=== PATIENT | female | born 1970 | race Caucasian/White ===

== ENCOUNTER 2017-12-13 16:19 | Emergency (ER) | payer BC ==
[2017-12-13] MEDS ORDERED: ACETAMINOPHEN 325 MG TABLET (FP) PO ONE (16:29)
--- NOTE | 2017-12-13 16:29 | PDOC ---
Rapid Medical Evaluation Time Seen by Provider: 12/13/17 16:26 Medical Evaluation: I have performed a brief in-person evaluation of this patient. The patient presents with a chief complaint of: flu like symptoms since yesterday. Went to [facility] yesterday. They did blood work and everything was normal. She states they did not swab her nose. She lives in a long-term and cannot bring any medicine into the long-term so she hasn't taken any tylenol or motrin?? Pt had a hysterectomy. Pertinent physical exam findings: febrile. I have ordered the following: flu swab, PO tylenol The patient will proceed to the ED for further evaluation Discharge Disposition - Diagnosis Flu-like symptoms - Referrals - Patient Instructions - Post Discharge Activity
[2017-12-13 16:30] VITALS: BP 96/62; PULSE 101; BMI 27.4
[2017-12-13 17:44] VITALS: TEMP 100.1
--- NOTE | 2017-12-13 17:58 | PDOC ---
History of Present Illness - General Chief Complaint: Cold Symptoms Stated Complaint: Cold Symptoms Time Seen by Provider: 12/13/17 16:26 - History of Present Illness Initial Comments: 47-year-old female with cough and fever 2 days she has no comorbidities she is otherwise healthy cough is unproductive 12/13/17 17:56 Past History - Past Medical History Allergies/Adverse Reactions: Allergies Allergy/AdvReac Type Severity Reaction Status Date / Time Penicillins Allergy Unknown Verified 12/13/17 17:08 Sulfa (Sulfonamide Allergy Unknown Verified 12/13/17 17:08 Antibiotics) Home Medications: Ambulatory Orders NK [No Known Home Medication] 12/13/17 COPD: No Psychiatric Problems: Yes (bipolar) - Surgical History GI Surgery: Yes (gastric bypass) - Immunization History Immunization Up to Date: Yes - Suicide/Smoking/Psychosocial Hx Smoking History: Never smoked Number of Cigarettes Smoked Daily: 10 Information on smoking cessation initiated: No Hx Alcohol Use: No Drug/Substance Use Hx: No Review of Systems - Review of Systems Constitutional: Yes: Chills, Fever Respiratory: Yes: Cough All Other Systems: Reviewed and Negative *Physical Exam - Vital Signs Last Vital Signs Temp Pulse Resp BP Pulse Ox 100.1 F H 101 H 18 96/62 99 12/13/17 17:44 12/13/17 16:27 12/13/17 16:27 12/13/17 16:27 12/13/17 16:27 - Physical Exam Comments: HEAD: NC/AT EYES: Conjuntiva clear Ears: Canals and TM's normal NOSE: No d/c THROAT: Moist mucous membrances, oral pharanx clear, uvula midline NECK: Supple without adenopathy CARDIAC: S1 S2 LUNGS: CTA Full and Equal breath sounds ABDOMEN: Soft NT ND MS: Full ROM in all joints without edema NEUROLOGIC: No gross sensory or motor deficits, NVID SKIN: Normal color and temperature no lesions or rashes 12/13/17 17:57 ED Treatment Course - ADDITIONAL ORDERS Additional order review: 12/13/17 16:29 Influenza Types A,B Antigen - Preliminary Nasopharyngeal Swab - Preliminary - Medications Given in the ED: ED Medications Discontinued Medications Generic Name Dose Route Start Last Admin Trade Name Freq PRN Reason Stop Dose Admin Acetaminophen 650 mg 12/13/17 16:29 12/13/17 16:30 Tylenol - PO 12/13/17 16:30 650 mg ONCE ONE Administration Medical Decision Making - Medical Decision Making 47-year-old female with a cough and fever and a benign examination. Flu swabs are negative. I will have her follow-up with her primary care physician one to 2 days is most likely a viral syndrome 12/13/17 17:57 *DC/Admit/Observation/Transfer Diagnosis at time of Disposition: Flu-like symptoms, Viral syndrome - Discharge Dispostion Disposition: HOME Condition at time of disposition: Stable Decision to Admit order: No - Referrals Referrals: Marvin Villalta MD [Staff Physician] - - Patient Instructions Printed Discharge Instructions: DI for Viral Upper Respiratory Infection -- Adult Additional Instructions: Continue to take Tylenol and Motrin as directed for fever. Follow-up with internal medicine that I have referred to in one to 2 days for further evaluation and treatment options. Return to the emergency room should symptoms worsen or go unresolved. - Post Discharge Activity
== END 2017-12-13 18:02 | disposition home or self-care (01) ==
LOC: JERFT 16:19
DX: J06.9 Acute upper respiratory infection, unspecified (principal); B97.89 Other viral agents as the cause of diseases classified elsewhere; Z88.0 Allergy status to penicillin; Z88.2 Allergy status to sulfonamides
CPT/HCPCS: 87804; 99281-25